=== PATIENT | male | born 1975 | race Caucasian/White ===

== ENCOUNTER 2022-12-26 07:26 | Outpatient (CLI) | payer MEDICARE, SELFPAY ==
--- NOTE | 2022-12-26 07:33 | CT_ITS ---
WS: [id number] CT LUMBAR SPINE, with and without contrast. HISTORY: DDD TECHNIQUE: Contiguous 2.0 mm axial imaging are performed. Sagittal and coronal reformats are submitte d and reviewed. [facility] CT [facility] use at least one of these dose optimization techni ques: automated exposure control; mA and/or kV adjustment per patient size (includes targeted exams w here dose is matched to clinical indication); or iterative reconstruction. IV contrast: Omnipaque 350; 95 mL. DLP: 680.02 mGy.cm COMPARISON: 10/12/2009. Lumbar spine MRI 12/28/2012 Mild straightening of the normal lumbar lordosis. Prosthetic L4-5 disc is identified. No subsidence o r displacement from the disc space. The remaining disc spaces are well-maintained. No lumbar spine fr acture. Facet joints are normal. L1-2: Normal. L2-3: Normal. L3-4: Normal. L4-5: Artifact through the disc and facet joints from the prosthesis. There is facet joint arthritis with mild widening of the facet joints. No stenosis. L5-S1: Mild annular disc bulging. No significant contact on the S1 nerve roots. Very minimal facet brenda int arthritis. Normal adrenal glands. Mild atherosclerosis aorta. Negative SI joints. No osseous destruction. Postco ntrast images are negative. No evidence for discitis or osteomyelitis or mass. IMPRESSION: 1. Status post L4-5 prosthetic disc placement. Similar to the prior study from 10/12/2009. No subsiden ce or displacement. 2. No high-grade central or foraminal stenosis. 3. Mild disc bulging at L5-S1 without disc contact on the nerve roots. 4. No areas of abnormal enhancement.
[2022-12-26] MEDS: iohexol 350 mg/mL 500 mL Btl (per mL) IV (07:51)
== END 2022-12-26 07:27 | disposition home or self-care (01) ==
PROVIDERS: Family Provider Family Medicine; PCP Family Medicine; Visit Provider General Practice
DX: M51.37 Other intervertebral disc degeneration, lumbosacral region (principal); Z96.698 Presence of other orthopedic joint implants
CPT/HCPCS: 72133; Q9967

== ENCOUNTER → 2024-01-08 09:01 | Outpatient (BNVA) | payer MEDICARE, SELFPAY | PROVIDERS: Family Provider Family Medicine; PCP Family Medicine; Visit Provider Family Medicine | DX: Z00.00 Encounter for general adult medical examination without abnormal findings (principal); F43.9 Reaction to severe stress, unspecified; E78.5 Hyperlipidemia, unspecified; M51.36 Other intervertebral disc degeneration, lumbar region; G47.00 Insomnia, unspecified | CPT/HCPCS: 80053; 80061; 82607; 84443; 85025 ==

== ENCOUNTER → 2024-02-13 12:29 | Outpatient (BNVA) | payer MEDICARE, SELFPAY | PROVIDERS: Family Provider Family Medicine; PCP Family Medicine; Visit Provider Family Medicine | DX: D72.829 Elevated white blood cell count, unspecified (principal); R53.83 Other fatigue | CPT/HCPCS: 85025; 86618; 86666; 86757 ==